=== PATIENT | male | born 1990 | race Caucasian/White ===

== ENCOUNTER 2016-10-22 02:26 | Emergency (ER) | payer OTHER ==
--- NOTE | 2016-10-22 03:42 | ED NURSING NOTES ---
Clinical Report - Nurses [place] [address] [place] [address] 10/22/2016 2:28 Patient: BREANNA THORNE JR TRIAGE Triage time 02:37. Acuity: LEVEL 3. Chief Complaint: REDNESS TO RIGHT EYE. 02:41. Alert. SEPSIS SCREEN: Sepsis Screen. Negative (no infection suspected/documented). VISUAL ACUITY: Visual acuity performed without corrective lenses: left eye 20/20; right eye 20/25 minus one letter; both eyes 20/15 minus two letters. --02:41 Adal Sinha R.N. 02:36 10/22/16. BP: 109/58. HR: 50. RR: 15. O2 saturation: 100%. Temp: 97.7 F (oral). Pain level now: 08/29. --02:41 Adal Sinha R.N. Weight: 57.1 kg stated. Height/Length: 71.7 inches Per Patient. BMI: 17.2. --02:41 Adal Sinha R.N. Medications None. --02:37 Adal Sinha R.N. Medication/allergy information source: the patient. --02:41 Adal Sinha R.N. Allergies No Known Drug Allergy. --02:38 Adal Sinha R.N. History Arrived by private vehicle. Historian: patient. Accompanied by spouse. Primary physician (None). Onset. (about 2300). He did not sustain an injury. 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 PAST MEDICAL HX: Immunizations: up-to-date. SOCIAL HX: Former smoker, end date 04/2016. Occasional alcohol use. History of occasional drug use: marijuana. No infectious disease exposure. ABUSE ASSESSMENT: No report of abuse. FALL RISK ASSESSMENT: Fall risk assessment completed. No fall risk identified. NUTRITIONAL RISK ASSESSMENT: The nutritional risk assessment revealed no deficiencies. FUNCTIONAL ASSESSMENT: Functional assessment: no impairments noted. LEARNING NEEDS ASSESSMENT: The learning needs assessment revealed no barriers. SKIN INTEGRITY ASSESSMENT: Skin integrity risk assessment completed. No skin integrity risk identified. --02:41 Adal Sinha R.N. PROBLEMS: Heart Murmur. --02:38 Adal Sinha R.N. ADDITIONAL SURGERIES: no known surgeries. Interventions ID band on patient. To treatment room. --02:41 Adal Sinha R.N. PHYSICAL ASSESSMENT 02:42. Ambulatory to room. GENERAL / NEURO / PSYCH: Alert. HEENT: No facial asymmetry noted. Conjunctival findings present: redness of the right conjunctiva. RESPIRATORY: Respirations not labored. SKIN: Skin is warm and dry. Normal skin turgor. --02:42 Adal Sinha R.N. NURSING PROGRESS NOTES 03:52. The patient is calm and resting quietly. GENERAL / NEURO / PSYCH: Alert. Oriented X 4. RESPIRATORY: No respiratory distress. SKIN: Skin color within normal limits. Skin is warm and dry. --03:55 Adal Sinha R.N. DISPOSITION / DISCHARGE Departure time: 03:54. Condition at departure: stable. No learning barriers present. Discharge instructions provided and reviewed with the patient and spouse. Reviewed medication(s) side effects, precautions, dosing and course information. Prescription(s) given to the patient. Patient and spouse verbalized understanding. Written instructions provided in [place]. The patient was discharged home and accompanied by spouse. He left the Emergency Department ambulatory and via private vehicle. Spouse driving. FALL RISK ASSESSMENT: Fall risk assessment completed. No fall risk identified. --03:54 Adal Sinha R.N. 03:51 10/22/16. BP: 107/67. HR: 53. RR: 14. O2 saturation: 100%. Pain level now: 09/29. --03:54 Adal Sinha R.N. Locked/Released at 10/22/2016 4:01 by Adal Sinha R.N.
--- NOTE | 2016-10-22 03:42 | ED CLINICAL REPORT ---
Clinical Report - Physicians/Mid Levels [facility] [address] [place] [address] 10/22/2016 2:28 [id number] Time Seen: 02:46. Arrived- By private vehicle. Historian- patient. HISTORY OF PRESENT ILLNESS Chief Complaint: EYE REDNESS and DRAINAGE. This started today, involves the right eye, is characterized as moderate in severity and is still present. The patient may have sustained an injury. This occurred at home. Mechanism- Pt states he rubbed the medial aspect of his upper eyelid, and suddenly, a large amount of purulent drainage was expressed. Pt states his eye has become increasingly erythematous over the past few hours with increasing drainage. No eye pain, eye burning or eye itching. Eye discomfort, redness and irritation. A moderate amount of thick and yellow discharge from the right eye. Mild right eyelid swelling. Photophobia. Blurred vision. REVIEW OF SYSTEMS No fever, sore throat or cough. All systems otherwise negative, except as recorded above. PAST HISTORY Problems: Heart Murmur. Additional Surgeries: no known surgeries. Medications: None. Allergies: No Known Drug Allergy. SOCIAL HISTORY Former smoker. Occasional alcohol use. History of drug use: marijuana. ADDITIONAL NOTES The nursing notes have been reviewed. PHYSICAL EXAM Vital Signs: 10/22/2016 02:37 BP: 109/58. HR: 50. RR: 15. O2 saturation: 100%. Temp: 97.7 F. Pain level now: 1/10. Have been reviewed. Appearance: Alert. Oriented X3. No acute distress. HEENT: Nose normal. Eyes: Visual acuity noted- see nurse's notes. Right eyelid everted for examination. Right cornea examined with fluorescein stain. Conjunctivae and sclerae appear normal to inspection. Corneas appear normal to inspection. Pupils equal, round and reactive to light. Accommodation normal. EOMs intact. Periorbital areas appear normal to inspection. Rt Eye: Mild eyelid edema. Mild eyelid erythema (inside of lid only). No stye present. No foreign body under the eyelid. No injury to the eyelids. Lt Eye: Left eye exam normal. Neck: Neck supple. Respiratory: No respiratory distress. Skin: No rash. Neuro: Oriented X 3. Mood/affect normal. No motor deficit. No sensory deficit. LABS, X-RAYS, AND EKG Pulse Oximetry: 10/22/2016 02:37 O2 saturation: 100%. (FIO2 - room air). Interpretation: normal. PROGRESS AND PROCEDURES Course of Care: D/w pt that he will need to be started on topical abx. Pt does not wear contacts. Patient counseled in person regarding the patient's stable condition, test results, diagnosis and need for follow-up. Concerns were addressed. Old medical records reviewed. Disposition: Discharged. Condition: stable. CLINICAL IMPRESSION Acute mucopurulent and bacterial conjunctivitis of the right eye. INSTRUCTIONS Warnings: GENERAL WARNINGS: Return or contact your physician immediately if your condition worsens or changes unexpectedly, if not improving as expected, or if other problems arise. Prescription Medications: Gentamicin ophthalmic solution 0.3% : instill 1 drop into the affected eye every 4 hours while awake for 7 days. Dispense sufficient quantity. No refill. Understanding of the discharge instructions verbalized by patient. Follow-up with: Bell Weathers MD, Ophthalmology, [facility], [address] [place] [address] - [address], [place] [address] Follow up in five days if not better. (Electronically signed by Allie Felder MD 10/22/2016 8:18)
--- NOTE | 2016-10-22 03:42 | ED NURSING NOTES ---
Clinical Report - Nurses [place] [address] [place] [address] 10/22/2016 2:28 Patient: BREANNA THORNE JR TRIAGE Triage time 02:37. Acuity: LEVEL 3. Chief Complaint: REDNESS TO RIGHT EYE. 02:41. Alert. SEPSIS SCREEN: Sepsis Screen. Negative (no infection suspected/documented). VISUAL ACUITY: Visual acuity performed without corrective lenses: left eye 20/20; right eye 20/25 minus one letter; both eyes 20/15 minus two letters. --02:41 Adal Sinha R.N. 02:36 10/22/16. BP: 109/58. HR: 50. RR: 15. O2 saturation: 100%. Temp: 97.7 F (oral). Pain level now: 08/29. --02:41 Adal Sinha R.N. Weight: 57.1 kg stated. Height/Length: 71.7 inches Per Patient. BMI: 17.2. --02:41 Adal Sinha R.N. Medications None. --02:37 Adal Sinha R.N. Medication/allergy information source: the patient. --02:41 Adal Sinha R.N. Allergies No Known Drug Allergy. --02:38 Adal Sinha R.N. History Arrived by private vehicle. Historian: patient. Accompanied by spouse. Primary physician (None). Onset. (about 2300). He did not sustain an injury. 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 PAST MEDICAL HX: Immunizations: up-to-date. SOCIAL HX: Former smoker, end date 04/2016. Occasional alcohol use. History of occasional drug use: marijuana. No infectious disease exposure. ABUSE ASSESSMENT: No report of abuse. FALL RISK ASSESSMENT: Fall risk assessment completed. No fall risk identified. NUTRITIONAL RISK ASSESSMENT: The nutritional risk assessment revealed no deficiencies. FUNCTIONAL ASSESSMENT: Functional assessment: no impairments noted. LEARNING NEEDS ASSESSMENT: The learning needs assessment revealed no barriers. SKIN INTEGRITY ASSESSMENT: Skin integrity risk assessment completed. No skin integrity risk identified. --02:41 Adal Sinha R.N. PROBLEMS: Heart Murmur. --02:38 Adal Sinha R.N. ADDITIONAL SURGERIES: no known surgeries. Interventions ID band on patient. To treatment room. --02:41 Adal Sinha R.N. PHYSICAL ASSESSMENT 02:42. Ambulatory to room. GENERAL / NEURO / PSYCH: Alert. HEENT: No facial asymmetry noted. Conjunctival findings present: redness of the right conjunctiva. RESPIRATORY: Respirations not labored. SKIN: Skin is warm and dry. Normal skin turgor. --02:42 Adal Sinha R.N. NURSING PROGRESS NOTES 03:52. The patient is calm and resting quietly. GENERAL / NEURO / PSYCH: Alert. Oriented X 4. RESPIRATORY: No respiratory distress. SKIN: Skin color within normal limits. Skin is warm and dry. --03:55 Adal Sinha R.N. DISPOSITION / DISCHARGE Departure time: 03:54. Condition at departure: stable. No learning barriers present. Discharge instructions provided and reviewed with the patient and spouse. Reviewed medication(s) side effects, precautions, dosing and course information. Prescription(s) given to the patient. Patient and spouse verbalized understanding. Written instructions provided in [place]. The patient was discharged home and accompanied by spouse. He left the Emergency Department ambulatory and via private vehicle. Spouse driving. FALL RISK ASSESSMENT: Fall risk assessment completed. No fall risk identified. --03:54 Adal Sinha R.N. 03:51 10/22/16. BP: 107/67. HR: 53. RR: 14. O2 saturation: 100%. Pain level now: 09/29. --03:54 Adal Sinha R.N. Locked/Released at 10/22/2016 4:01 by Adal Sinha R.N.
--- NOTE | 2016-10-22 03:42 | ED CLINICAL REPORT ---
Clinical Report - Physicians/Mid Levels [facility] [address] [place] [address] 10/22/2016 2:28 [id number] Time Seen: 02:46. Arrived- By private vehicle. Historian- patient. HISTORY OF PRESENT ILLNESS Chief Complaint: EYE REDNESS and DRAINAGE. This started today, involves the right eye, is characterized as moderate in severity and is still present. The patient may have sustained an injury. This occurred at home. Mechanism- Pt states he rubbed the medial aspect of his upper eyelid, and suddenly, a large amount of purulent drainage was expressed. Pt states his eye has become increasingly erythematous over the past few hours with increasing drainage. No eye pain, eye burning or eye itching. Eye discomfort, redness and irritation. A moderate amount of thick and yellow discharge from the right eye. Mild right eyelid swelling. Photophobia. Blurred vision. REVIEW OF SYSTEMS No fever, sore throat or cough. All systems otherwise negative, except as recorded above. PAST HISTORY Problems: Heart Murmur. Additional Surgeries: no known surgeries. Medications: None. Allergies: No Known Drug Allergy. SOCIAL HISTORY Former smoker. Occasional alcohol use. History of drug use: marijuana. ADDITIONAL NOTES The nursing notes have been reviewed. PHYSICAL EXAM Vital Signs: 10/22/2016 02:37 BP: 109/58. HR: 50. RR: 15. O2 saturation: 100%. Temp: 97.7 F. Pain level now: 1/10. Have been reviewed. Appearance: Alert. Oriented X3. No acute distress. HEENT: Nose normal. Eyes: Visual acuity noted- see nurse's notes. Right eyelid everted for examination. Right cornea examined with fluorescein stain. Conjunctivae and sclerae appear normal to inspection. Corneas appear normal to inspection. Pupils equal, round and reactive to light. Accommodation normal. EOMs intact. Periorbital areas appear normal to inspection. Rt Eye: Mild eyelid edema. Mild eyelid erythema (inside of lid only). No stye present. No foreign body under the eyelid. No injury to the eyelids. Lt Eye: Left eye exam normal. Neck: Neck supple. Respiratory: No respiratory distress. Skin: No rash. Neuro: Oriented X 3. Mood/affect normal. No motor deficit. No sensory deficit. LABS, X-RAYS, AND EKG Pulse Oximetry: 10/22/2016 02:37 O2 saturation: 100%. (FIO2 - room air). Interpretation: normal. PROGRESS AND PROCEDURES Course of Care: D/w pt that he will need to be started on topical abx. Pt does not wear contacts. Patient counseled in person regarding the patient's stable condition, test results, diagnosis and need for follow-up. Concerns were addressed. Old medical records reviewed. Disposition: Discharged. Condition: stable. CLINICAL IMPRESSION Acute mucopurulent and bacterial conjunctivitis of the right eye. INSTRUCTIONS Warnings: GENERAL WARNINGS: Return or contact your physician immediately if your condition worsens or changes unexpectedly, if not improving as expected, or if other problems arise. Prescription Medications: Gentamicin ophthalmic solution 0.3% : instill 1 drop into the affected eye every 4 hours while awake for 7 days. Dispense sufficient quantity. No refill. Understanding of the discharge instructions verbalized by patient. Follow-up with: Bell Weathers MD, Ophthalmology, [facility], [address] [place] [address] - [address], [place] [address] Follow up in five days if not better. (Electronically signed by Allie Felder MD 10/22/2016 8:18)
--- NOTE | 2016-10-22 08:18 | ED MAR SUMMARY ---
..... Medication Administration Record [facility] [address] [place] [address] Patient: BREANNA THORNE Visit ID: [id number] 26y, M Weight: 57.1 kg Height/Length: 71.7 in BMI: 17.2 ALLERGIES: No Known Drug Allergy
--- NOTE | 2016-10-22 08:18 | ED MAR SUMMARY ---
..... Medication Administration Record [facility] [address] [place] [address] Patient: BREANNA THORNE Visit ID: [id number] 26y, M Weight: 57.1 kg Height/Length: 71.7 in BMI: 17.2 ALLERGIES: No Known Drug Allergy
--- NOTE | 2016-10-22 08:18 | ED DISCHARGE INSTRUCTIONS ---
Patient: BREANNA THORNE JR General Instructions [facility] VisitID: [id number] [place] [address] 26y, M Registration Date/Time: 10/22/2016 INSTRUCTIONS Warnings: GENERAL WARNINGS: Return or contact your physician immediately if your condition worsens or changes unexpectedly, if not improving as expected, or if other problems arise. Prescription Medications: Gentamicin ophthalmic solution 0.3% : instill 1 drop into the affected eye every 4 hours while awake for 7 days. Dispense sufficient quantity. No refill. Understanding of the discharge instructions verbalized by patient. Follow-up with: Bell Weathers MD, Ophthalmology, [facility], [address] [place] [address] - [address], [place] [address] Follow up in five days if not better. ADDITIONAL INFORMATION Conjunctivitis, Bacterial You have a bacterial infection in the membranes covering the eye. The most common symptoms include a thick discharge from the eye, swollen eyelids, redness, eyelids sticking together upon awakening, and a gritty or scratchy feeling in the eye. The infection takes about 7-10 days to resolve with treatment. Home Care: Use prescribed eyedrops or ointment as directed to treat the infection. Apply a warm pack (towel soaked in warm water) to the affected eye 3-4 times a day. Do this just before applying medicine to the eye. Use a warm, wet cloth to wipe away crusting of the eyelids in the morning. This is caused by mucus drainage during the night. You may also use saline irrigating solution or artificial tears to rinse away mucus inside the eye. Do not put a patch over the eye. Wash your hands before and after touching the infected eye. This is to prevent spreading the infection to the other eye, and to other people. Do not share your towels or washcloths with others. You may use acetaminophen (Tylenol) or ibuprofen (Motrin, Advil) to control pain, unless another medicine was prescribed. [NOTE: If you have chronic liver or kidney disease or ever had a stomach ulcer or GI bleeding, talk with your doctor before using these medicines.] Do not wear contact lenses until your eyes have healed and all symptoms are gone. Follow Up with your doctor or this facility as directed, or if there has not been improvement within 5 days. Get Prompt Medical Attention if any of the following occur: Worsening vision Increasing pain in the eye Increasing swelling or redness of the eyelid Redness spreading around the eye You have been given the following additional information: Conjunctivitis, Bacterial (Electronically signed by Allie Felder MD 10/22/2016 8:18)
--- NOTE | 2016-10-22 08:18 | ED MED RECONCILIATION SUMMARY ---
Patient: THORNEMILEYOLIVER Schaffer JR Medication Reconciliation Report [facility] VisitID: [id number] [address] [place] [address] 26y, M Registration Date/Time: 10/22/2016 Weight: 57.1 kg Height/Length: 60 in. BMI: 17.2 ALLERGIES: No Known Drug Allergy The patient's Home Medications are listed below: NONE. The source(s) of the original Home Medication information: patient The following Medications were given to the patient in the Emergency Department: None. The following Medications were prescribed to the patient: Gentamicin ophthalmic solution 0.3% : instill 1 drop into the affected eye every 4 hours while awake for 7 days. Dispense sufficient quantity. No refill. -- Allie Felder MD
--- NOTE | 2016-10-22 08:18 | ED DISCHARGE INSTRUCTIONS ---
Patient: BREANNA THORNE JR General Instructions [facility] VisitID: [id number] [place] [address] 26y, M Registration Date/Time: 10/22/2016 INSTRUCTIONS Warnings: GENERAL WARNINGS: Return or contact your physician immediately if your condition worsens or changes unexpectedly, if not improving as expected, or if other problems arise. Prescription Medications: Gentamicin ophthalmic solution 0.3% : instill 1 drop into the affected eye every 4 hours while awake for 7 days. Dispense sufficient quantity. No refill. Understanding of the discharge instructions verbalized by patient. Follow-up with: Bell Weathers MD, Ophthalmology, [facility], [address] [place] [address] - [address], [place] [address] Follow up in five days if not better. ADDITIONAL INFORMATION Conjunctivitis, Bacterial You have a bacterial infection in the membranes covering the eye. The most common symptoms include a thick discharge from the eye, swollen eyelids, redness, eyelids sticking together upon awakening, and a gritty or scratchy feeling in the eye. The infection takes about 7-10 days to resolve with treatment. Home Care: Use prescribed eyedrops or ointment as directed to treat the infection. Apply a warm pack (towel soaked in warm water) to the affected eye 3-4 times a day. Do this just before applying medicine to the eye. Use a warm, wet cloth to wipe away crusting of the eyelids in the morning. This is caused by mucus drainage during the night. You may also use saline irrigating solution or artificial tears to rinse away mucus inside the eye. Do not put a patch over the eye. Wash your hands before and after touching the infected eye. This is to prevent spreading the infection to the other eye, and to other people. Do not share your towels or washcloths with others. You may use acetaminophen (Tylenol) or ibuprofen (Motrin, Advil) to control pain, unless another medicine was prescribed. [NOTE: If you have chronic liver or kidney disease or ever had a stomach ulcer or GI bleeding, talk with your doctor before using these medicines.] Do not wear contact lenses until your eyes have healed and all symptoms are gone. Follow Up with your doctor or this facility as directed, or if there has not been improvement within 5 days. Get Prompt Medical Attention if any of the following occur: Worsening vision Increasing pain in the eye Increasing swelling or redness of the eyelid Redness spreading around the eye You have been given the following additional information: Conjunctivitis, Bacterial (Electronically signed by Allie Felder MD 10/22/2016 8:18)
--- NOTE | 2016-10-22 08:18 | ED MED RECONCILIATION SUMMARY ---
Patient: THORNEMILEYOLIVER Schaffer JR Medication Reconciliation Report [facility] VisitID: [id number] [address] [place] [address] 26y, M Registration Date/Time: 10/22/2016 Weight: 57.1 kg Height/Length: 60 in. BMI: 17.2 ALLERGIES: No Known Drug Allergy The patient's Home Medications are listed below: NONE. The source(s) of the original Home Medication information: patient The following Medications were given to the patient in the Emergency Department: None. The following Medications were prescribed to the patient: Gentamicin ophthalmic solution 0.3% : instill 1 drop into the affected eye every 4 hours while awake for 7 days. Dispense sufficient quantity. No refill. -- Allie Felder MD
== END 2016-10-22 03:54 | disposition home or self-care (01) ==
LOC: ED SRH 02:26
DX: H10.021 Other mucopurulent conjunctivitis, right eye (principal); A49.9 Bacterial infection, unspecified; Z87.891 Personal history of nicotine dependence